=== PATIENT | female | born 1950 | race Caucasian/White ===

== ENCOUNTER 2017-10-28 15:50 | Emergency (ER) | payer MEDICARE, OTHER ==
--- NOTE | 2017-10-28 17:03 | RAD ---
EXAM DESCRIPTION: Abdomen Series CLINICAL HISTORY:67 years Female, anemia Comparison: None FINDINGS: Small left and moderate right pleural effusions with bilateral interstitial and airspace opacities of the lung bases representing combination of pulmonary edema, atelectasis and/or pneumonia. Left central venous catheter with tip terminating in the SVC/right atrium junction. Tracheostomy tube projecting over the tracheal air column. Cardiac silhouette is prominent but obscured by lung pathology. No acute osseous abnormality. Soft tissues are unremarkable. Pucity of bowel gas with no evidence of obstruction. No evidence of free air. IMPRESSION: Small left and moderate right pleural effusions with bilateral interstitial and airspace opacities of the lung bases representing combination of pulmonary edema, atelectasis and/or pneumonia. Electronically signed by: Man Price MD 10/28/2017 5:02 PM CDT
[2017-10-28] MEDS ORDERED: SODIUM CHLORIDE 0.9% 1000ML 1,000 ML IVS ONE (17:44)
--- NOTE | 2017-10-28 18:57 | ED.PDOC ---
History of Present Illness - General Source: EMS notes reviewed, detention records Exam Limitations: clinical condition - History of Present Illness Initial Comments: pt presents from detention for transfusion. dropped hb by 2 pts over 2-3 weeks. hx of previous transfusions with suspected gi bleed by reported by family in the past. hx of colon cancer but unable to come off of vent after surgery. reportedly in remission. pt able to respond to verbal commands with action. extensive lower extremity edema. bibasilar rales on exam. urine is dark and turbid in perez. no ty gi bleed at detention. bp's are normallly low normal but even a little lower today. no fever reported. Timing/Duration: unsure <Garcia Momin - Last Filed: 10/28/17 19:09> <JACKELIN VAZ - Last Filed: 10/28/17 20:48> - General Chief Complaint: General Stated Complaint: abnormal lab results Time Seen by Provider: 10/28/17 16:31 - History of Present Illness Allergies/Adverse Reactions: Allergies Tetanus Toxoid Allergy (Verified 10/28/17 17:04) Home Medications: Ambulatory Orders Acetaminophen [Tylenol] 325 mg PO MONTHLY #1 cap 10/28/17 Review of Systems - Review of Systems Unable to Obtain Due To: condition <Garcia Momin - Last Filed: 10/28/17 19:09> Past Medical History (General) - Patient Medical History Hx of COPD: Yes Surgical History: other - Vaccination History Hx Influenza Vaccination: - unknown Hx Pneumococcal Vaccination: - unknown - Social History Hx Tobacco Use: No Hx Alcohol Use: No Hx Substance Use: No Hx Substance Use Treatment: No Hx Depression: No - Activities of Daily Living Halfway/Assisted Living (if applicable):: [facility] <JACKELIN VAZ - Last Filed: 10/28/17 20:48> Family Medical History - Family History Mother Family History: Unknown <JACKELIN VAZ - Last Filed: 10/28/17 20:48> Physical Exam - Physical Exam General Appearance: Alert, Other - responds to verbal commands appropriately Eye Exam: bilateral normal Ears, Nose, Throat: hearing grossly normal, other - mucous membranes dry/. Neck: full range of motion, supple Respiratory: no respiratory distress - on vent, no accessory muscle use, crackles - at bases bilaterally. Cardiovascular/Chest: normal peripheral pulses, regular rate, rhythm, other - + 3 edema Peripheral Pulses: radial,right: 2+, radial,left: 2+, dorsalis pedis,right: 1+, dorsalis pedis,left: 1+ Gastrointestinal/Abdominal: soft, other - ostomy and feeding tube in place. Rectal Exam: deferred Extremity: non-tender, no calf tenderness, pedal edema, swelling Neurologic: alert, other - limited exam due to condition. moves all 4 ext to command and touch Skin Exam: pallor Comments: Vital Signs - 8 hr 10/28/17 10/28/17 10/28/17 15:50 17:18 17:35 Temperature 99.3 F Pulse Rate [ 76 64 66 pulse ox] Respiratory 19 19 18 Rate Respiratory 20 Rate [Volume Control Data] Blood Pressure 97/45 82/47 [Left Arm] Blood Pressure 129/69 [Right Arm] O2 Sat by Pulse 96 93 L 92 L Oximetry 10/28/17 19:00 Temperature Pulse Rate [ 68 pulse ox] Respiratory 18 Rate Respiratory Rate [Volume Control Data] Blood Pressure 102/55 [Left Arm] Blood Pressure [Right Arm] O2 Sat by Pulse 97 Oximetry <Garcia Momin - Last Filed: 10/28/17 19:09> - Physical Exam General Appearance: Alert Comments: Vital Signs - 24 hr 10/28/17 10/28/17 10/28/17 15:50 17:18 17:35 Temperature 99.3 F Pulse Rate [ 76 64 66 pulse ox] Respiratory 19 19 18 Rate Respiratory 20 Rate [Volume Control Data] Blood Pressure 97/45 82/47 [Left Arm] Blood Pressure 129/69 [Right Arm] O2 Sat by Pulse 96 93 L 92 L Oximetry <JACKELIN VAZ - Last Filed: 10/28/17 20:48> Progress - Progress Progress: 10/28/17 19:16 67 yo vent dependent pt with significant anemia in need of multiple transfusion. source of anemia likely gi bleed but uncertain. urine still pending but looks suspect. possible pna vs 3rd spacing from low albumin and anemia as with the edema in her legs. lactic acidosis cw mild hypotension as well. receiving small fluid bolus to help with bp. plan to transfer for above when labs returned. handing off to dr vaz for continuation of workup and care. - Results/Orders Results/Orders: 10/28/17 16:36 Telemetry .CONTINUOUS BLOOD CULTURE Stat UA [URINALYSIS] Stat 10/28/17 16:45 EKG STAT nsr, borderline prolonged qt. left atrial dilation. nonspecific st changes. 10/28/17 17:45 stool [FECAL OCCULT BLOOD] Stat Laboratory Results - last 24 hr 10/28/17 10/28/17 10/28/17 16:35 16:35 16:35 WBC 13.8 H RBC 2.13 L Hgb 6.5 L* Hct 20.1 L MCV 94.1 MCH 30.5 MCHC 32.6 L RDW 17.6 H Plt Count 340 MPV 8.9 Absolute Neuts (auto) 12.00 H Absolute Lymphs (auto) 0.70 L Absolute Monos (auto) 1.00 H Absolute Eos (auto) 0.00 Absolute Basos (auto) 0.00 Neutrophils % 87.2 H Lymphocytes % 5.1 L Monocytes % 7.1 Eosinophils % 0.3 L Basophils % 0.3 PT 11.9 INR 1.030 PTT (SP) 27.2 Sodium 134 L Potassium 4.6 Chloride 88 L Carbon Dioxide 37 H Anion Gap 13.6 BUN 24 H Creatinine 0.45 L BUN/Creatinine Ratio 53.3 H Random Glucose 75 Serum Osmolality 271.0 L Lactic Acid Calcium 9.2 Total Bilirubin 0.4 AST 33 ALT 23 Alkaline Phosphatase 143 H B-Natriuretic Peptide 158.0 H Serum Total Protein 5.5 L Albumin 1.9 L Globulin 3.6 H Albumin/Globulin Ratio 0.5 L 10/28/17 16:35 WBC RBC Hgb Hct MCV MCH MCHC RDW Plt Count MPV Absolute Neuts (auto) Absolute Lymphs (auto) Absolute Monos (auto) Absolute Eos (auto) Absolute Basos (auto) Neutrophils % Lymphocytes % Monocytes % Eosinophils % Basophils % PT INR PTT (SP) Sodium Potassium Chloride Carbon Dioxide Anion Gap BUN Creatinine BUN/Creatinine Ratio Random Glucose Serum Osmolality Lactic Acid 2.3 H Calcium Total Bilirubin AST ALT Alkaline Phosphatase B-Natriuretic Peptide Serum Total Protein Albumin Globulin Albumin/Globulin Ratio chest xray with bilateral effusions and interstitial infiltrates. <Garcia Momin L - Last Filed: 10/28/17 19:09> - Progress Progress: 10/28/17 20:46 102/65; 64; 14; 98%; opens eyes to painful stimuli & trys to mouth words. Follows no commands. Abd soft. Green stool in colostomy bag. Pitting edema. Guaiac positive. Transfer accepted. Awaiting EMS. <JACKELIN VAZ - Last Filed: 10/28/17 20:48> Departure <Garcia Momin - Last Filed: 10/28/17 19:09> <JACKELIN VAZ - Last Filed: 10/28/17 20:48> - Departure Clinical Impression: Hypoalbuminemia Anemia Qualifiers: Anemia type: unspecified type Qualified Code(s): D64.9 - Anemia, unspecified Disposition: Admit Patient Condition: Serious Departure Forms: ED Discharge - Pt. Copy, Patient Portal Self Enrollment Referrals: ANTELMO BEDOYA [Primary Care Provider] - 1-2 Weeks Prescriptions: Acetaminophen [Tylenol] 325 mg PO MONTHLY #1 cap Home Medications: Ambulatory Orders Acetaminophen [Tylenol] 325 mg PO MONTHLY #1 cap 10/28/17 Transfer to Outside Facility - Transfer Information Accepting Provider:: Dr. Rich Accepting Facility: [facility] Reason for Transfer: required specialist not available <JACKELIN VAZ - Last Filed: 10/28/17 20:48>
[2017-10-28] MEDS ORDERED: PIPERACILLIN/TAZOBACTAM 3.375 GM in SODIUM CHLORIDE 0.9% 100ML 100 ML IVPB ONE (19:39)
[2017-10-28] MEDS ORDERED: PIPERACILLIN/TAZOBACTAM 3.375 GM VIAL IVPB ONE (19:49)
[2017-10-28] MEDS ORDERED: SODIUM CHLORIDE 0.9% 100ML 100 ML IVPB ONE (19:49)
[2017-10-28 21:19] VITALS: BP 134/49; O2SAT 100
[2017-10-28 21:22] VITALS: TEMP 98.7
== END 2017-10-28 21:36 | disposition short-term general hospital (02) ==
LOC: ER 15:50
DX: D64.9 Anemia, unspecified (principal); E88.09 Other disorders of plasma-protein metabolism, not elsewhere classified; J44.9 Chronic obstructive pulmonary disease, unspecified; I95.9 Hypotension, unspecified; E87.2 Acidosis; Z85.038 Personal history of other malignant neoplasm of large intestine; Z93.3 Colostomy status
CPT/HCPCS: 36415; 74019; 80053; 81001; 82270; 83605; 83880; 85025; 85610; 85730; 87040; 87086; 93005; 94002; J2543; J7030; J7050